=== PATIENT | female | born 1970 | race Caucasian/White ===

== ENCOUNTER 2017-07-18 00:05 | Observation (INO) | payer OTHER ==
[~2017-07-18] VITALS: Ht 162.6 cm; Wt 86.6 kg
[2017-07-18] VITALS (16 sets, daily range): BP systolic 97–119; BP diastolic 63–80; PULSE 69–109; RESP 13–18; O2SAT 93–100
--- NOTE | 2017-07-18 00:27 | ED.REPORT ---
HPI-Abd Pain F 40 and Over Date of Service Jul 18, 2017 ED Provider: Urbano Jaramillo MD Pt is an otherwise healthy 46 year old female who presents to the ED complaining of worsening waxing and waning abdominal pain onset 2 days ago. She c/o associated nausea and mild pain radiating to her back. She denies vomiting, diarrhea, dysuria, and fever. The pt denies a history of cholecystectomy and appendectomy. Per pt, she does not have a history of gall disease or gall stones. She states that she feels "bloated." Nursing Notes Stated Complaint: STOMACH PAIN Chief Complaint: Female Abdominal Pain Nursing Notes Reviewed: Yes Allergies: Coded Allergies: Penicillins (Verified Allergy, Unknown, 07/18/17) shellfish derived (Verified Allergy, Unknown, 07/18/17) General Time Seen by MD: 00:26 Chief Complaint Abdominal pain Hx Obtained From: Patient Arrived By: Walk-in Sudden in Onset?: No Onset Occurred: 2 days ago Symptom Duration: Waxes and wanes Location: : Diffuse Quality: Painful Radiation: : Back Severity: Current: Moderate Severity: Maximum: Moderate Recent Healthcare: No recent doctor visit, No recent hospitalization Similar Sx Previous: No Past Medical History Past Medical History Denies: Diabetes mellitus Past Surgical History Denies: Appendectomy, Cholecystectomy Smoking History Current Every Day Smoker Social History Alcohol Use: "Social" Drug Use: Denies drug use Other Social History: Good social support Ambulatory Status Independent Review of Systems Constitutional: Denies: Fever GI: Reports: Abdominal pain, Nausea, Denies: Diarrhea, Vomiting Female: Denies: Dysuria Musculoskeletal: Reports: Back pain Complete sys rev & neg: except as marked. Physical Exam Vital Signs Vital Signs (First) Date Time Temp Pulse Resp B/P Pulse Ox O2 Delivery O2 Flow Rate FiO2 07/18/17 00:18 37.1 109 18 119/80 93 Room Air Initial VS: Reviewed, Vital signs normal Head / Eyes: Atraumatic, Normocephalic Neck: Supple, Full range of motion Extremities: Vascular intact, Neuro intact Skin: Warm, Dry, No cyanosis Neurologic: Alert, Oriented, Nonfocal Psychiatric: Mood/affect normal, Behavior normal General/Constitutional: Awake, Alert Adequately hydrated. Mild to moderate distress. Respiratory / Chest: Atraumatic, Breath sounds NL, Breath sounds = bilat Cardiovascular: Heart rate NL, Regular rhythm, Heart sounds NL Abdomen: Atraumatic, Soft Diffuse abdominal tenderness locating in the RLQ with guarding Back: Atraumatic, Full range of motion, No CVA tenderness Interpretation & Diagnostics Lab Results Interpretation Result Diagram: 07/18/17 0052 07/18/17 0052 Test 07/18/17 00:33 07/18/17 00:52 Hold Urine Received (Received) White Blood Count 14.6th/mm3 (3.8-10.1) Red Blood Count 3.88mil/mm3 (3.90-5.20) Hemoglobin 12.6g/dL (12.0-15.6) Hematocrit 37.2% (35.0-46.0) Mean Corpuscular Volume 95.9fL (81-100) Mean Corpuscular Hemoglobin 32.5pg (27.0-35.0) Mean Corpuscular Hemoglobin Concent 33.9% (32.0-37.0) Red Cell Distribution Width 13.3% (12.3-15.4) Platelet Count 301bil/L (150-400) Neutrophils (%) (Auto) 75.5% (40-74) Lymphocytes (%) (Auto) 12.3% (14-46) Monocytes (%) (Auto) 10.5% (4-12) Eosinophils (%) (Auto) 1.4% (0-5) Basophils (%) (Auto) 0.1% (0-3) Sodium Level 134mEq/L (134-144) Potassium Level 3.9mEq/L (3.5-5.2) Chloride Level 99mEq/L (97-108) Carbon Dioxide Level 18mmol/L (18-29) Blood Urea Nitrogen 7mg/dL (6-24) Creatinine 0.50mg/dL (0.57-1.00) Estimat Glomerular Filtration Rate 190mL/min (>59) Glucose Level 120mg/dL (60-99) Lactic Acid Level 0.7mmol/L (0.4-2.0) Calcium Level 8.6mg/dL (8.5-10.1) Magnesium Level 1.8mg/dL (1.6-2.6) Total Bilirubin 0.6mg/dL (0.0-1.2) Aspartate Amino Transf (AST/SGOT) 14U/L (0-50) Alanine Aminotransferase (ALT/SGPT) 15U/L (0-32) Alkaline Phosphatase 43U/L (25-150) Total Protein 7.3g/dL (6.4-8.4) Albumin 3.7g/dL (3.4-5.0) Lipase 15U/L (13-60) Lab Results Interpretation: Elevated white blood count CT Abd / Pelvis Interpretation CONCLUSION: Acute appendicitis. The periappendiceal inflammatory changesaround the tip of the appendix are quite prominent. There may be early perforation. No definite abscess or extraluminal air. Small amount of fluid in the pelvic cul-de-sac. Transmitted to the ED at 02:17 by Kartik Wong M.D. Study type: Abdominal CT IV contrast Interpretation / Wet Read by: Interpret - Radiologist, Discussed w radiologist Re-Eval/Medical Decision Med Decision/Clinical Course 46 year old female with 2 days of abdominal pain now localizing in the right lower quadrant. She has an elevated white count 14,600. She has CT evidence of acute appendicitis with a possible early or microperforation. She is allergic to penicillin. She is placed on cefotetan and admitted to Dr. Christianson. Source of Hx: Old records Re-Evaluation/Progress #1: Time of Eval: 00:30 Re-Evaluation/Progress Note: Informed pt of plan for imaging. All questions addressed. Re-Evaluation/Progress #2: Time of Eval: 02:30 Re-Evaluation/Progress Note: Pt rechecked. Inquired pt about penicillin allergy. Informed pt of plan for admission. Pt understands and agrees with plan for admission. All questions addressed. Consultation #1: Call Returned at: 02:16 Note: Consulted with radiologist. Discussed CT scan results Consultation #2: Referral / Consult Name: Etelvina Christianson MD Consulted With: Surgeon Call Returned at: 02:21 Public Relations Counselor: Agrees with eval, Agrees with plan Note: Discussed pt's case. Recommends Zosyn. Will see the pt in the OR in the morning. Consultation #3: Referral / Consult Name: Hellen Ruiz DO Consulted With: Hospitalist Call Returned at: 02:30 Public Relations Counselor: Will see patient, Agrees with eval, Agrees with plan, Accepts admit Counseled Regarding: Diagnosis, Lab results, Need for admission Discharge & Departure Primary Impression: Acute appendicitis Disposition: ADMITTED TO HOSPITAL Discharge Condition All VS Reviewed: Yes Condition: Stable Referrals: Maddie Chatterjee DPM (PCP) Scribe Attestation Portions of this note were transcribed by Mandie Juarez. I, Dr. Jaramillo personally performed the history, physical exam and medical decision-making; I reviewed and confirmed the accuracy of the information in the transcribed note. Signed by: Jeanne Ly, 07/18/17. copies to: Maddie Chatterjee DPM, Howard L MD Jul 18, 2017 00:27 Mandie Webster Jul 18, 2017 00:34
[2017-07-18] MEDS ORDERED: 0.9% Sodium Chloride 1,000 ML IV ONE (00:32)
[2017-07-18] MEDS ORDERED: Ondansetron 2 mg/mL 2 mL Inj IVPUSH PRN ×3 (00:35→07:40)
[2017-07-18] MEDS: HYDROmorphone 0.5 mg/0.5 mL iSecure Syringe IVPUSH PRN ×4 (00:50→05:16)
[2017-07-18 00:58] LABS: BASOPHILS % (AUTO) 0.1 % (0-3); EOSINOPHILS % (AUTO) 1.4 % (0-5); MONOCYTES % (AUTO) 10.5 % (4-12); Mean Corpuscular Hemoglobin 32.5 pg (27.0-35.0); Mean Corpuscular Volume 95.9 fL (81-100); NEUTROPHILS % (AUTO) 75.5 % (40-74); Platelet Count 301 bil/L (150-400)
[2017-07-18 01:22] LABS: Magnesium 1.8 mg/dL (1.6-2.6)
[2017-07-18] MEDS ORDERED: Cefotetan Inj 2,000 MG in IV Premix 1 EACH IV ONE (02:30)
[2017-07-18] MEDS ORDERED: Alum-Mag Hydrox-Simeth 30 mL Suspension PO PRN (02:45)
[2017-07-18] MEDS: Dextrose 5% 0.45% NaCl 1,000 ML IV SCH ×3 (03:24→16:54)
--- NOTE | 2017-07-18 03:45 | NUR ---
ADMIT; 46 yr old female to room 1021 at 0300 via gurney from e.r. with c/o lower abd pain since last wed. Plan is for surgery in the a.m. Npo. Pt / asking questions regarding pre surg/post surgery plan. Pt teaching done regarding room to holding area to o.r. to pacu and back to room and some home care ie incision problems to report after discharge if it should occur. left for home and will return to room around 7am or sooner.
--- NOTE | 2017-07-18 05:51 | NUR ---
PAIN; dilaudid 0.5mg iv for abd pain with moderate relief. Addendum: 07/18/17 at 0553 by RAMESH DA SILVA RN ; voided qs per bathroom.
--- NOTE | 2017-07-18 06:16 | NUR ---
O.R.; report given to o[facility] nurse, Alivia Starr via phone. Pt voided. Iv saline locked. Rings removed by patient and given to her .
--- NOTE | 2017-07-18 06:34 | NUR ---
Fco.Marnie to o.[facility] via tracy. No belongings sent with pt. Pt eager to have the surgery done. Addendum: 07/18/17 at 0638 by RAMESH DA SILVA RN Dr. Thompson in and talked to pt.
[2017-07-18] MEDS ORDERED: Lactated Ringer's 1,000 ML IV ONE (06:58)
--- NOTE | 2017-07-18 06:59 | PCM.HPANE ---
Patient Data Surgeon Admitting Provider:Etelvina Christianson MD Attending Provider:Etelvina Christianson MD Primary Care Physician:J Luis Espino MD Other Provider:Vladimir Daigle Anesthesia Reason for Visit Acute Appendicitis Ht/WT & BMI Height (Feet): 5 Height (Inches): 4.00 Weight (Kilograms): 86.600 Body Mass Index 32.59 Allergies Coded Allergies: Penicillins (Verified Allergy, Unknown, 07/18/17) shellfish derived (Verified Allergy, Unknown, 07/18/17) Past Anesthesia History Anesthesia History: Denies:: Anesthesia Reactions Diabetes History Hx Diabetes?: No MRSA MRSA: No Medications No Active Prescriptions or Reported Meds History History of ENT Problems?: No HEENT History: Denies:: Abnormal Airway Denture Type: None Teeth Condition: Within Normal Limits Hx of Heart Problems?: No Cardiovascular History: Denies:: Congestive Heart Failure Hypertension Hx of Respiratory Problem?: No Respiratory History: Denies:: Tuberculosis Hx Neurologic Problems?: No Hx of GI Problems?: Yes Hx of Problems?: No Female Hx: Denies:: Currently Hx Musculoskeletal Problems?: No Hx of Psycho/Social Problems?: Yes Psycho Social History: Positive for:: Anxiety (small amount) Hx Depression (situational) Denies:: Bipolar Disorder Suicide Attempt Hx Surgeries?: Yes Hx Any Other Health Problems?: Yes Other History: Positive for:: Hospitalization (csection 26 yrs ago) Denies:: Cancer Thyroid Disease History Blood Transfusions: Positive for:: Accept Blood Products? Denies:: Blood Transfusions Hx Diabetes: No Hx Alcohol Use: Yes (socially)Hx Substance Use: No Smoking Status: Current Every Day Smoker Have You Smoked inLast 12 mo: YesApprox How Many Cigarettes/day: 5 cigs / day Stop/Bang Treated for Sleep Apnea?: No (will have sleep study in the future) Do You Have a CPAP Machine?: No S-Snoring: Do You Snore Loudly: Yes T-Tired: feel tired, fatigued: No O-Obsered: Observed not breath: Yes P-Blood Pressure: treated: No B- Body Mass Index > 35 kg/m2: No A- Age over 50: No N- Neck Large Circumference: No G- Gender Male: No DAYANARA Total Score: 2 Risk Assessment Category Category 1A: Patient has history of documented sleep apnea, and HAS NOT received any narcotic, sedative or anesthesia administration during this stay. Category 1B: Patient has history of documented sleep apnea, and HAS received any narcotic , sedative or anesthesia administration during this stay Category 2: Patient has SUSPECTED Obstructive Sleep Apnea, and HAS received any narcotic , sedative or anesthesia administration during this stay. Category 3: Patient has SUSPECTED Obstructive Sleep Apnea and HAS NOT received narcotic, sedative or anesthesia administration during this stay. Category 4: Outpatient in Procedural Areas with known sleep apnea or who screen positive for High Risk via the STOP/BANG questionnaire. Exam Exam Vital Signs Vital Signs Date Time Temp Pulse Resp B/P Pulse Ox O2 Delivery O2 Flow Rate FiO2 07/18/17 03:00 36.4 81 16 113/76 97 Room Air 07/18/17 02:46 37.7 96 16 119/78 97 Room Air 07/18/17 00:18 37.1 109 18 119/80 93 Room Air General Appearance: Alert, Oriented X3, Cooperative, No Acute Distress HEENT/AIRWAY: MP 2 Lungs: Normal Air Movement Heart: Regular Rate/Rhythm Meds/Labs/Diagnostics Admission Meds Current Medications Sodium Chloride 1,000 ml @ 0 mls/hr Q0M ONCE IV Last administered on 00:50; Start 07/18/17 at 00:32; Stop 07/18/17 at 00:34; Status DC Cefotetan Disodium/Dextrose 2000 mg/Premix 50 ml @ 100 mls/hr ONCE ONCE IV Last administered on 07/18/17 03:30; Start 07/18/17 at 02:30; Stop 07/18/17 at 02:59; Status DC Dextrose/Sodium Chloride (D5 1/2 Normal Saline) 1,000 ml @ 100 mls/hr Q10H IV Last administered on 07/18/17 03:24; Start 07/18/17 at 02:43 Labs Test 07/18/17 00:33 07/18/17 00:52 Hold Urine Received (Received) White Blood Count 14.6th/mm3 (3.8-10.1) Red Blood Count 3.88mil/mm3 (3.90-5.20) Hemoglobin 12.6g/dL (12.0-15.6) Hematocrit 37.2% (35.0-46.0) Mean Corpuscular Volume 95.9fL (81-100) Mean Corpuscular Hemoglobin 32.5pg (27.0-35.0) Mean Corpuscular Hemoglobin Concent 33.9% (32.0-37.0) Red Cell Distribution Width 13.3% (12.3-15.4) Platelet Count 301bil/L (150-400) Neutrophils (%) (Auto) 75.5% (40-74) Lymphocytes (%) (Auto) 12.3% (14-46) Monocytes (%) (Auto) 10.5% (4-12) Eosinophils (%) (Auto) 1.4% (0-5) Basophils (%) (Auto) 0.1% (0-3) Sodium Level 134mEq/L (134-144) Potassium Level 3.9mEq/L (3.5-5.2) Chloride Level 99mEq/L (97-108) Carbon Dioxide Level 18mmol/L (18-29) Blood Urea Nitrogen 7mg/dL (6-24) Creatinine 0.50mg/dL (0.57-1.00) Estimat Glomerular Filtration Rate 190mL/min (>59) Glucose Level 120mg/dL (60-99) Lactic Acid Level 0.7mmol/L (0.4-2.0) Calcium Level 8.6mg/dL (8.5-10.1) Magnesium Level 1.8mg/dL (1.6-2.6) Total Bilirubin 0.6mg/dL (0.0-1.2) Aspartate Amino Transf (AST/SGOT) 14U/L (0-50) Alanine Aminotransferase (ALT/SGPT) 15U/L (0-32) Alkaline Phosphatase 43U/L (25-150) Total Protein 7.3g/dL (6.4-8.4) Albumin 3.7g/dL (3.4-5.0) Lipase 15U/L (13-60) Plan Impression Patient chart reviewed, patient interviewed and anesthestic plan with risks, benefits, and alternatives discussed, and informed consent obtained. NPO per Anesth. Guidelines: Yes ASA Physical Status: ASA1 Normal Healthy Anesthetic Plan: GA Bene/Risks/Altern/Consents: Yes HP Complete Prior to Induction: Yes Yasir Rivera MD Jul 18, 2017 06:59
[2017-07-18] MEDS ORDERED: Bupivacaine-MPF 0.5% 30 mL Inj INFILTRATE ONE (07:34)
--- NOTE | 2017-07-18 07:34 | HP ---
[address] [address] HISTORY AND PHYSICAL PATIENT: KIMANI RAMIREZ : 1970 MR#: [id number] ADMIT: 07/18/2017 JOB ID: [id number] DATE OF VISIT: 07/18/2017 CHIEF COMPLAINT: A 46-year-old lady with acute appendicitis seen in consultation at the request of Etelvina Christianson M.D. and Urbano Jaramillo MD. HISTORY OF PRESENT ILLNESS: The patient is a 46-year-old lady who presented to the emergency department last night with worsening pain which started Monday, that is two days ago. She had some nausea and some pain radiating to the back, but she has had no vomiting, diarrhea, or fever. She had some subjective chills, but the temperature was normal. After coming to the emergency department she was diagnosed with appendicitis based on blood work and a CT scan and my colleague, Dr. Christianson, was consulted and she was given a dose of cefotetan and was admitted to the hospital. OTHER MEDICAL PROBLEMS: Obesity. PRIOR OPERATIONS: None. SOCIAL HISTORY: She does smoke. She drinks alcohol occasionally. She is here with her . REVIEW OF SYSTEMS: A 12-point review of systems negative other than the pertinent positives noted in the history of present illness and other medical problems. ALLERGIES: 1. PENICILLIN. 2. SHELLFISH. MEDICATIONS AT HOME: None. INVESTIGATIONS: CT abdomen and pelvis performed last night showed acute appendicitis with some fluid around the appendiceal tip in the pelvis. Lab work from April 17, 2017: WBC 14.6, hemoglobin 12.6, platelet count 301. Creatinine of 0.5. Glucose 120. Normal liver function studies. PHYSICAL EXAMINATION: A 46-year-old lady in no acute distress. BMI 32.8, temperature 36.4, pulse 81, blood pressure 113/76, saturating 97% on room air. Eyes normal pupils, conjunctivae. Ears, nose, and throat normal external appearance. Neck no adenopathy. Respiratory normal effort, clear to auscultation. Cardiovascular regular rate and rhythm. Gastrointestinal tender to palpation all over, but more so in the right lower quadrant. Neurologic: No gross deficits. Psychiatric: Alert, appropriate. Skin normal. Musculoskeletal normal strength in extremities. ASSESSMENT AND PLAN: Acute appendicitis. Discussed pathophysiology and treatment rationale and recommended laparoscopic appendectomy in addition to the antibiotic therapy. If she has evidence of perforation we will keep her in the hospital with IV antibiotics for longer, but as long as it is not perforated she might be able to go home within the next 24 hours. Based on her postoperative recovery.
[2017-07-18] MEDS ORDERED: Lactated Ringer's 500 ML IV PRN (07:39)
[2017-07-18] MEDS ORDERED: Lactated Ringer's 1,000 ML IV SCH (07:39)
[2017-07-18] MEDS ORDERED: Dexamethasone 4 mg/mL Inj IVPUSH PRN (07:40)
[2017-07-18] MEDS ORDERED: EPHEDrine Sulfate 50 mg/mL Inj IVPUSH PRN (07:40)
[2017-07-18] MEDS ORDERED: MetoCLOpramide 5 mg/mL 2 mL Inj IVPUSH PRN (07:40)
[2017-07-18] MEDS ORDERED: HYDROmorphone 1 mg/mL Inj IVPUSH PRN ×2 (07:40→09:20)
[2017-07-18] MEDS ORDERED: Phenylephrine 10,000 mCg/mL Inj IVPUSH PRN (07:40)
--- NOTE | 2017-07-18 08:00 | NUR ---
Off floor Pt is off of floor in OR at this time.
[2017-07-18] MEDS ORDERED: metroNIDAZOLE 500 mg/100 mL NS Premix IV ONE (08:34)
--- NOTE | 2017-07-18 09:08 | NUR ---
Social Work- Brief Note/ Readiness for D/C Data: EMR reviewed. Pt is a 46 year old female admitted under observation for acute appendicitis per H&P. Pt's insurance is [employer]. Pt'sPCP is J Luis Espino MD. Pt's readmit risk score is not listed at this time. SW attempted to meet with pt in the room but she was in surgery. KATH spoke with pt's Loi Campbell, . KATH role explained, phone number written on whiteboard. Loi provided the following information. Pt and Loi live on [address] in a home where pt is independent with ADLs and self-care. Pt works at a manager [employer]. Pt drives. Pt has no DPOA on file, Loi requested the paperwork to review with pt. KATH provided this. Pt to d/c home with her to transport via POV. No anticipated d/c needs. KATH wrote plan on whiteboard. SW will continue to follow. Assessment: Pt who is independent with ADLs and self-care. Plan: Pt to d/c home with her to transport via POV. No anticipated d/c needs. KATH will continue to follow. Rama Mcdowell, SALES REPRESENTATIVE [employer]
--- NOTE | 2017-07-18 09:13 | DRSVH ---
PROCEDURE: CT ABDOMEN AND PELVIS WITH CONTRAST ([id number]) INDICATIONS: abd pain, worsein RLQ TECHNIQUE: After the administration of intravenous contrast, 5 mm thick sections acquired from the diaphragm to the symphysis. 5 mm coronal and sagittal reformats were acquired. For radiation dose reduction, the following was used: automated exposure control, adjustment of mA and/or kV according to patient siz e. COMPARISON: None. FINDINGS: Image quality: Excellent. ABDOMEN: Lung bases: Lung bases are clear. Heart size is normal. Solid organs: Liver and spleen are normal in size and enhancement. Gallbladder is within normal ruiz its. Biliary system is non dilated. Pancreas enhances normally. No adrenal nodules. Kidneys demon strate normal size and enhancement, without hydronephrosis. Peritoneum and bowel: Bowel loops demonstrate normal wall thickness and caliber. No free air. Trace free fluid noted in the cul-de-sac of the pelvis. The appendix is enlarged to 1.1 cm in maximum diam eter. Small, approximately 1 mm diameter appendicolith is noted within the appendix. Mild inflammator y changes noted adjacent to the appendix. Nodes and vessels: No retroperitoneal or mesenteric adenopathy by size criteria. Aorta and inferior vena cava are normal in size. Miscellaneous: No ventral hernias. PELVIS: Genitourinary: Bladder wall thickness is normal. Miscellaneous: No inguinal hernias or adenopathy. Bones: No suspicious bony lesions. No vertebral body compression fractures. IMPRESSION: 1. Acute appendicitis. 2. No periappendiceal abscess or free air. Dictated by: Altagracia Chaudhary MD, PhD on 07/18/2017 at 9:05 Approved by: Altagracia Chaudhary MD, PhD on 07/18/2017 at 9:11
[2017-07-18] MEDS: Lactated Ringer's 1,000 ML IV SCH ×2 (09:20→16:54)
[2017-07-18] MEDS: metroNIDAZOLE Inj 500 MG in IV Premix 1 EACH IV SCH ×3 (09:20→23:52)
--- NOTE | 2017-07-18 09:39 | OP ---
[address] [address] OPERATIVE REPORT PATIENT: KIMANI RAMIREZ : 1970 MR#: [id number] ADMIT: 07/18/2017 JOB ID: [id number] DATE OF SURGERY: 07/18/2017 PREOPERATIVE DIAGNOSIS(ES): Acute appendicitis. POSTOPERATIVE DIAGNOSIS(ES): Acute retrocecal perforated appendicitis. PROCEDURE PERFORMED: Laparoscopic appendectomy. SURGEON: Erick Thompson M.D. FIELD TECH: Richy Ramey M.D./Betty Reed DO INDICATIONS: The patient is a 46-year-old lady who presented to the emergency department last night with worsening pain over two days. She had some nausea and some pain radiating to the back and the workup showed appendicitis with leukocytosis. After discussing the risks, benefits and alternatives, she was brought to the operating room for laparoscopic appendectomy. PROCEDURE DETAILS: She was placed in a supine position. Underwent smooth induction of general anesthesia, had a Deal catheter was placed. The abdomen was prepped and draped in the usual sterile fashion. Surgical time out was undertaken using safety checklist, and all were in agreement. We began by making an infraumbilical curvilinear incision and entered the abdomen using combination of open Martínez technique and Optiview trocar. After obtaining pneumoperitoneum, we upsized the umbilical port to a 12 mm and placed two additional 5 mm ports, one in the suprapubic and one in the left lower quadrant location. After that we identified some inflammation in the right side of the abdomen but initially no obvious perforation was seen. But we identified the appendix to be retrocecal. We first created a window at the base of the appendix to try and divide the base but we could not get a good angle. After that I continued to mobilize the appendix in the retrocecal location posteriorly and we did get into a pus pocket and did notice a perforation near the tip of the appendix. We continued to mobilize this bluntly and took down the mesentery with electrocautery with good hemostasis. After mobilizing the appendix more, we divided the base with a 45 mm Endo-RITA stapler and mobilized the appendix bluntly off the retroperitoneum and placed an EndoCatch bag. After that, we suctioned out all the fluid after irrigation and removed the specimen along with the bag through the umbilical port site and evacuation of the pneumoperitoneum, closed the umbilical port fascia with [id number] 0-Vicryl suture. Skin was reapproximated with 4-0 Monocryl. Steri-Strips and sterile dressing were applied. Deal catheter was removed. The patient was recovered from anesthesia and was taken to the recovery room in stable condition. JENNIFER
[2017-07-18] MEDS: fentaNYL-PF 50 mCg/mL 2 mL Inj IVPUSH PRN ×2 (09:58→10:05)
--- NOTE | 2017-07-18 10:30 | NUR ---
Postop appy Pt returns to floor postop appendectomy. 3 lap sites C/D/I. A&OX4 Pain 5/10 medications were given about 5 minutes prior to arrival. Pt able to stand and and take a few steps to bed from [facility]. Some slight lightheadedness noted. Pt to use call light to get up. Care continues
--- NOTE | 2017-07-18 11:47 | PCM.ANEP1 ---
Post Anesthesia PACU Phase 1 Assessment Vital Signs Vital Signs Date Time Temp Pulse Resp B/P Pulse Ox O2 Delivery O2 Flow Rate FiO2 07/18/17 10:30 36.8 71 17 108/74 94 Room Air 07/18/17 10:15 82 14 110/71 96 Room Air 07/18/17 10:10 74 16 103/68 96 Room Air 07/18/17 10:00 75 16 106/63 97 Room Air 07/18/17 09:50 77 16 106/68 97 Room Air 07/18/17 09:40 36.6 80 13 107/70 98 Room Air 07/18/17 09:35 76 16 105/69 98 Room Air 07/18/17 09:30 80 13 112/71 98 Room Air 07/18/17 09:25 90 15 115/68 99 Room Air 07/18/17 09:20 88 14 97/73 100 Simple Mask 8 07/18/17 09:18 36.5 96 15 113/74 100 Simple Mask 8 Level of Alertness: Awake, talking SUBRAMANIAN's with Equal Strength: Yes Pain: Yes Pain Scale Score: 5 Nausea or Vomiting: No CV Function & Hydration Stable: Yes Airway Device: None Lungs: Normal Air Movement PACU Phase 2 Assessment Complications: No Follow up Care: N/A Patient Instructions Provided: N/A Yasir Rivera MD Jul 18, 2017 11:47
[2017-07-18] MEDS ORDERED: Rocuronium 10 mg/mL 5 mL Inj ONE (17:19)
[2017-07-18] MEDS ORDERED: Ondansetron 2 mg/mL 2 mL Inj ONE (17:19)
[2017-07-18] MEDS ORDERED: Propofol 10,000 mCg/mL 20 mL Inj ONE (17:19)
[2017-07-18] MEDS ORDERED: EPHEDrine/NS 5 mg/mL 5 mL Syringe ONE (17:19)
[2017-07-18] MEDS ORDERED: fentaNYL-PF 50 mCg/mL 2 mL Inj ONE (17:19)
[2017-07-18] MEDS ORDERED: Neostigmine 1 mg/mL 10 mL Inj ONE (17:19)
[2017-07-18] MEDS ORDERED: Dexamethasone 4 mg/mL Inj ONE ×2 (17:19)
[2017-07-18] MEDS ORDERED: Glycopyrrolate 0.2 MG/ML 1mL Inj ONE (17:19)
--- NOTE | 2017-07-18 18:17 | NUR ---
Ambulation Pt has been ambulating with steady gait to bathroom. Pt ambulated carter once with no issues. Encouraged pt to ambulate carter for short periods of time frequently. Care continues
[2017-07-18] MEDS ORDERED: 0.9% Sodium Chloride 0 ML ONE (23:48)
[2017-07-19 00:54] VITALS: BP 98/63; PULSE 77; RESP 16; O2SAT 96
--- NOTE | 2017-07-19 04:02 | NUR ---
Pain Pain well controlled with 10 mg oxycodone and tylenol prn. Able to ambulate in hallway this evening. Antibiotics given, slight tenderness in IV site but pt does not want to attempt a new site unless necessary. Hourly rounding ongoing.
[2017-07-19 04:24] VITALS: BP 116/72; PULSE 74; RESP 16; O2SAT 98
[2017-07-19] MEDS: Lactated Ringer's 1,000 ML IV SCH (08:52)
[2017-07-19] MEDS: metroNIDAZOLE Inj 500 MG in IV Premix 1 EACH IV SCH (09:19)
[2017-07-19] MEDS ORDERED: levoFLOXacin Inj 750 MG in IV Premix 1 EACH IV SCH (12:00)
[2017-07-19 13:01] VITALS: BP 102/69; PULSE 83; RESP 18; O2SAT 95
--- NOTE | 2017-07-19 13:18 | PCM.PNSURG ---
Subjective Date of Service: Jul 19, 2017 Date of Service: Jul 19, 2017 Visit Information: Reason for Visit Acute Appendicitis Surgery/Surgery Date lap appy 07/18/17 Post-Op Day # 1 Date of Admission: Jul 18, 2017 at 02:32 Hospital Day # No acute overnight events. Subjective: Patient notes that her pain was well-controlled after the surgery last night with only a slight increase in her pain this morning. She also notes some nausea that began this morning. Patient states that she is able to ambulate without any significant increase in pain. She is passing flatus. Postop General: No Shortness of Breath, No Chest Pain Gastrointestinal: Tolerating Oral Feedings, Passing Flatus, Complains of Nausea Postop Activity: Ambulating in [place] Objective Vital Sign- Last 8 Hours Date Time Temp Pulse Resp B/P Pulse Ox O2 Delivery O2 Flow Rate FiO2 07/19/17 13:01 36.7 83 18 102/69 95 Room Air Intake and Output- Last 8 Hour 07/19/17 Cumulative From/Thru 07:00 07/18/17 00:18 - 07/19/17 06:19 Intake Total 798 ml 4474 ml Output Total 600 ml 2090 ml Balance 198 ml 2384 ml Intake Oral 675 ml 1995 ml IV Total 123 ml 2479 ml Output Urine Total 600 ml 2085 ml Estimated Blood Loss 5 ml # Bowel Movements 0 0 General: Alert, Oriented X3, Cooperative, No Acute Distress Neck: Supple Lungs: Clear to Auscultation, Normal Air Movement Heart: Regular Rate/Rhythm, No Murmurs/Rubs/Gallops Abdomen: Soft, Normoactive bowel tones, Other (mild tenderness diffusely ) Result Diagram: 07/18/17 0052 07/18/17 0052 Assessment & Plan Impression Acute perforated appendicitis s/p laparoscopic appendectomy. Problems: Plan - Patient with well-controlled pain. Continue pain management with PO Oxycodone and Tylenol PRN. - She is afebrile today. Continue IV antibiotics: Levofloxacin and Metronidazole. - Continue to administer Zofran PRN for nausea. -Discharge when tolerating PO on abx Betty Reed DO Jul 19, 2017 13:18 Erick Thompson MD Jul 20, 2017 12:31
--- NOTE | 2017-07-19 14:24 | PCM.DISURG ---
Surgical Discharge Instruction Date of Service Jul 19, 2017 Dates of Hospitalization Date of Hospital Admission Jul 18, 2017 at 02:32 Providers Admitting Physician: Etelvina Christianson MD Primary Care Physician: J Luis Espino MD Attending Physician: Etelvina Christianson MD Discharge Diagnosis Discharge Diagnosis Primary Diagnosis: 1. Acute retrocecal perforated appendicitis 2. Status post laparoscopic appendectomy Other Medical History: Obesity Smoker No Reported Surgical History Post Operative diagnosis Same as above Diet Discharge Diet: No restrictions Activity Discharge Activity-General: Activity as pain allows, No lifting >15 pounds for 2 weeks Dressing and Incisional Care Dressing Care: Allow Steri Stripes to fall off (or remove in 1 week.) Hygiene: May shower, DO NOT soak incision under water, Other (May remove Band- Aids and a couple days.) Additional Instructions Additional Instructions Please take 7 day course of antibiotics: Levaquin by mouth as directed until finished. Follow Up Plan Follow Up Plan Follow-up with physician insurance underwriting assistant and outpatient general surgery clinic in 1 week Follow-up Provider (F9): Max Flores PA-C Follow-up appointment: Weeks (1) Call your provider for: Fever, Shortness of breath, Increasing abdominal pain, Nausea, Wound redness, Increasing wound pain, Warmth to touch, Discharge @ incision, pus discharge Brendan Mars PA-C Jul 19, 2017 14:24
[2017-07-19] MEDS ORDERED: OXYC5TAB72 PO (14:30)
[2017-07-19] MEDS ORDERED: LEVO750T39 PO (14:34)
--- NOTE | 2017-07-19 14:34 | NUR ---
Social Work- Discharge Data: EMR reviewed. Pt is on day 1 of hospitalization. Pt discussed in multidisciplinary rounds, no discharge needs identified. Pt to d/c today, discharge orders are active. Pt to d/c home with her to transport via POV. No d/c needs. Assessment: Pt who is independent at baseline. Plan: Pt to d/c home with her to transport via POV. No d/c needs. BRIDGETTE Beltran
--- NOTE | 2017-07-19 14:37 | PCM.DC.SUR ---
Discharge Summary Date of Service: Jul 19, 2017 Date of Hospital Admission: Jul 18, 2017 at 02:32 Date of Operation(s): 07/18/2017 Date of Discharge: 07/19/2017 Diagnosis at Time of Discharge Primary Diagnosis: 1. Acute retrocecal perforated appendicitis 2. Status post laparoscopic appendectomy Other Medical History: Obesity Smoker No Reported Surgical History Problems: Operation Laparoscopic appendectomy Brief History and Physical: CHIEF COMPLAINT: A 46-year-old lady with acute appendicitis seen in consultation at the request of Etelvina Christianson M.D. and Urbano Jaramillo MD. HISTORY OF PRESENT ILLNESS: The patient is a 46-year-old lady who presented to the emergency department last night with worsening pain which started Monday, that is two days ago. She had some nausea and some pain radiating to the back, but she has had no vomiting, diarrhea, or fever. She had some subjective chills, but the temperature was normal. After coming to the emergency department she was diagnosed with appendicitis based on blood work and a CT scan and my colleague, Dr. Christianson, was consulted and she was given a dose of cefotetan and was admitted to the hospital. Hospital Course: The patient was admitted with history, presentation, & workup consistent with the above diagnosis & underwent the above-mentioned surgical procedure without complication. See operative report for details of the procedure. After surgery the patient convalesced appropriately. The postsurgical recovery was uneventful. Signs of bowel function returned on postoperative day #1. The patient was stable for discharge home on postoperative day #1. At the time of discharge the patient was voiding without difficulty, passing gas, tolerating a normal diet without nausea or vomiting, her pain was controlled with minimal prescription opiate analgesics, she was ambulating without assistance, with clean, dry, & intact surgical wounds without signs of significant infection, inflammation, &/or hematoma. We discussed and the patient verbalized understanding all the postoperative care & medication instructions, follow-up, & when to seek immediate medical attention. All questions were answered. Disposition: Home in stable condition on postoperative day #1. Follow-up Plan: 1. Complete seven-day course of oral antibiotics 2. Repeat CBC then follow-up in outpatient general surgery clinic for wound check and reevaluation. Levofloxacin (Levofloxacin) 750 Mg Tablet 750 MG PO DAILY Metronidazole (Metronidazole) 500 Mg Tablet 500 MG PO TID oxyCODONE (oxyCODONE) 5 Mg Tablet 5 MG PO QID PRN PRN For Severe Pain Discharge Medications: See above list. copies to: Maddie Chatterjee DPM, Scott PA-C Jul 19, 2017 14:37
[2017-07-19] MEDS ORDERED: METR500T19 PO (14:40)
[2017-07-19] MEDS ORDERED: ONDA8TAB7 PO (15:23)
[2017-07-19] MEDS ORDERED: POLY17PO6 PO (15:26)
--- NOTE | 2017-07-19 17:15 | NUR ---
Nausea Some nausea noted after receiving ABX. Tends to resolve after an hr or so. Plan to go home with Zofran to use for nausea prevention. Care continues
--- NOTE | 2017-07-19 17:16 | NUR ---
DC All discharge instructions reviewed and understood by pt. Prescriptions sent into [facility], oxy prescription in hand with pt. No questions per pt and . Pain well controlled with 10mg Oxy, APAP. Pt ambulates with steady gait out with to home. Care discontinues
--- NOTE | 2017-07-24 10:37 | PATH ---
SURGICAL PATHOLOGY Attending Physician:Erick Thompson MD CASE STATUS: Signed Out PATIENT NAME: KIMANI RAMIREZ PID: [id number] : 1970 DATE COLLECTED:07/18/2017 19:51 SPECIMEN: Appendix CLINICAL HISTORY: ACUTE APPENDICITIS 1). APPENDIX FINAL DIAGNOSIS: Vermiform Appendix, Excision: Acute appendicitis. ICD10: K35.2 GROSS DESCRIPTION: The specimen is received in one formalin filled container labeled with the patient's name, sublabeled "appendix" and consists of one cylinder of rogers appendix measuring 6.0 x 0.6 x 0.6 CM. The visceral surface is rogers-brown, smooth and glistening. Sectioning reveals the wall to be thickened to 0.2-0.3 CM. The lumen contains a light rogers brown to bowden semisolid to friable material. Rep. sections including the tip (sectioned longitudinally), proximal margin (inked blue), and random cross-sections are submitted in one cassette. 07/18/2017DC ICD-9 CODES: CPT CODES: 1: 85096 Electronically Signed Out Donnell Vital MD, PhD [facility] Pathology [facility] [place] [address] Technical component performed at [facility], [address] [place] [address] Ave[address], [place], [address]
== END 2017-07-19 17:20 | disposition home or self-care (01) ==
LOC: SED 00:05 → OSC 02:32
PROVIDERS: ADMIT Surgery; ATTEND Student in an Organized Health Care Education/Training Program
DX: K35.2 Acute appendicitis with generalized peritonitis (principal); F41.8 Other specified anxiety disorders; F17.210 Nicotine dependence, cigarettes, uncomplicated; Z88.0 Allergy status to penicillin; Z91.013 Allergy to seafood
CPT/HCPCS: 36415; 44970; 74177; 80053; 81025; 83605; 83690; 83735; 85025; 96361; 96365; 96366; 96367; 96375; 96376; 99285; G0378; J1100; J1170; J1885; J1956; J2250; J2405; J2704; J2710; J3010; J3490; J7030; J7042; J7120; Q9967